=== PATIENT | male | born 1990 | race Caucasian/White ===

== ENCOUNTER 2018-01-05 10:29 | Emergency (ER) | payer OTHER ==
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
--- NOTE | 2018-01-05 12:53 | RAD ---
Indication: RIGHT shoulder pain following injury 2 weeks ago. Dislocated the shoulder a few times in the past. Comparison: No relevant prior exams available on the [facility] PACS for comparison. Technique: Internal rotation AP, external rotation Grashey, scapular Y, axillary views RIGHT shoulder Report: Negative for fracture. Normal acromioclavicular and glenohumeral joint alignment. Unremarkable soft tissue contours. IMPRESSION: #. Negative radiographic exam of the RIGHT shoulder.
[2018-01-05 12:54] VITALS: BP 115/74
== END 2018-01-05 13:18 | disposition home or self-care (01) ==
LOC: UCCORT 10:29
DX: S46.001A Unspecified injury of muscle(s) and tendon(s) of the rotator cuff of right shoulder, initial encounter (principal); F17.210 Nicotine dependence, cigarettes, uncomplicated; X58.XXXA Exposure to other specified factors, initial encounter; Y92.9 Unspecified place or not applicable
CPT/HCPCS: 99202; G0463

== ENCOUNTER 2018-10-26 17:04 | Emergency (ER) | payer OTHER ==
[2018-10-26 17:41] VITALS: BP 108/76
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
== END 2018-10-26 18:31 | disposition home or self-care (01) ==
LOC: UCCORT 17:04
DX: S83.412A Sprain of medial collateral ligament of left knee, initial encounter (principal); V19.3XXA Pedal cyclist (driver) (passenger) injured in unspecified nontraffic accident, initial encounter; Y93.55 Activity, bike riding; Y92.9 Unspecified place or not applicable; F17.210 Nicotine dependence, cigarettes, uncomplicated
CPT/HCPCS: 99213; G0463